=== PATIENT | female | born 1985 | race Two or more races ===

== ENCOUNTER 2017-10-04 10:56 | Inpatient (IN) | payer BC, MEDICAID ==
[2017-10-04] MEDS ORDERED: Ketorolac Tromethamine 30 MG/ML VIAL ONE (11:49)
[2017-10-04] MEDS ORDERED: PHENYLEPHRINE-NS 100 MCG/ML 10 ML SYRINGE ONE (11:49)
[2017-10-04] MEDS ORDERED: Ondansetron HCl/PF 4 MG/2 ML Vial ONE (11:49)
[2017-10-04 11:59] VITALS: BMI 26.6
[2017-10-04 12:46] LABS: Amnisure Internal Control QC ACCEPTABLE (ACCEPTABLE); Amnisure Test RUPTURE DETECTED (No Rupture)
[2017-10-04] MEDS: Lactated Ringer's 1,000 ML IV SCH ×2 (14:11→14:32)
[2017-10-04] MEDS ORDERED: Ondansetron HCl/PF 4 MG/2 ML Vial IVP PRN ×5 (14:14→23:55)
[2017-10-04] MEDS ORDERED: Promethazine HCl 25 MG/ML VIAL IM PRN ×3 (14:14→23:55)
[2017-10-04] MEDS ORDERED: Docusate 100 MG CAP PO PRN (14:14)
[2017-10-04 14:29] LABS: Hemoglobin 12.8 g/dL (12.0-16.0); Mean Corpuscular Hemoglobin 34.3 pg (27.0-31.0); Mean Platelet Volume 9.1 fL (7.4-10.4); Platelet Count 140 thou/uL (130-400); RBC Distribution Width 12.4 % (11.5-14.5); Red Blood Cell (RBC) Count 3.75 mill/uL (4.20-5.40); White Blood Cell (WBC) Count 9.6 thou/uL (4.8-10.8)
[2017-10-04] MEDS ORDERED: CEFAZOLIN/Water 2 GM/20 ML SYRINGE SLOW IVP SCH ×2 (14:30)
[2017-10-04] MEDS ORDERED: Bicitra 30 ML UDCUP PO SCH (14:30)
[2017-10-04 15:07] LABS: HBSAg Index 0.17 S/CO (0-0.99); Hep B Surf Ag Non-Reactive S/CO (NonReactive); Syphilis Antibody Nonreactive (Nonreactive); Syphilis Antibody Index 0.04 S/CO (<1.00 Non-Reactive)
[2017-10-04] MEDS ORDERED: Morphine PF 1 MG/ML SYR ONE (15:59)
[2017-10-04] MEDS ORDERED: Oxytocin 10 UNITS/ML VIAL ONE (15:59)
[2017-10-04] MEDS ORDERED: Bupivacaine 0.75% W/DEXTROSE 8.25% 2 ML AMP ONE (16:05)
[2017-10-04] MEDS ORDERED: Lidocaine 1% PF 5 ML VIAL ONE (16:05)
[2017-10-04] MEDS ORDERED: Promethazine HCl 25 MG SUPP PR PRN ×2 (16:35→23:55)
[2017-10-04] MEDS ORDERED: Naloxone HCl 0.4 mg/ml Vial IV PRN ×4 (16:35→23:55)
[2017-10-04] MEDS ORDERED: Ketorolac Tromethamine 30 MG/ML VIAL IVP PRN (16:35)
[2017-10-04] MEDS ORDERED: HYDROmorphone 2 MG/ML VIAL SLOW IVP PRN (16:35)
[2017-10-04] MEDS ORDERED: Naloxone HCl 0.4 mg/ml Vial IVP PRN ×2 (16:35)
[2017-10-04] MEDS ORDERED: diphenhydrAMINE 50 MG/ML VIAL IVP PRN ×2 (16:35→23:55)
[2017-10-04] MEDS ORDERED: Meperidine HCl/PF 25 MG/ML VIAL SLOW IVP PRN (16:35)
[2017-10-04] MEDS ORDERED: Eucerin (Mineral Oil/Petrolatum,White) 30 gm Jar TOP PRN (16:35)
[2017-10-04] MEDS ORDERED: Acetaminophen 1,000 MG in Premix Bag 1 BAG IVPB PRN ×2 (16:37→23:57)
[2017-10-04] MEDS ORDERED: Communication Order-Pharmacy FS SCH (16:45)
[2017-10-04] MEDS ORDERED: Fentanyl 100 MCG/2 ML VIAL ONE (17:30)
[2017-10-04] MEDS ORDERED: diphenhydrAMINE 25 MG CAP PO PRN (20:55)
[2017-10-04] MEDS ORDERED: HYDROcodone/Acetaminophen 5/325 mg Tablet PO PRN ×2 (20:55)
[2017-10-04] MEDS ORDERED: Adacel (T-DAP) 0.5 ML VIAL IM ONE (20:55)
[2017-10-04] MEDS ORDERED: Simethicone Chewable 80 MG TAB PO PRN (20:55)
[2017-10-04] MEDS ORDERED: NS / Oxytocin 40 units/1000ml 1,000 ML ONE (21:41)
[2017-10-04] MEDS ORDERED: Hydrocerin (Eucerin) Cream 120 gm Jar TOP PRN (23:55)
[2017-10-04] MEDS ORDERED: NO PO,IM,IV OR SC NARCOTICS FOR 12HR EXCEPT BY ANESTHESIA PO SCH (23:55)
[2017-10-05] MEDS: Ketorolac Tromethamine 30 MG/ML VIAL IVP PRN ×2 (00:14→09:27)
[2017-10-05 06:02] LABS: Hemoglobin 10.4 g/dL (12.0-16.0); Mean Corpuscular HGB CONC 35.3 g/dL (32.0-36.0); Mean Corpuscular Hemoglobin 34.8 pg (27.0-31.0); Mean Corpuscular Volume 98.4 fL (78.0-98.0); Mean Platelet Volume 8.7 fL (7.4-10.4); Platelet Count 141 thou/uL (130-400); RBC Distribution Width 12.3 % (11.5-14.5); Red Blood Cell (RBC) Count 2.98 mill/uL (4.20-5.40); White Blood Cell (WBC) Count 9.1 thou/uL (4.8-10.8)
[2017-10-05] MEDS: Docusate Calcium (SURFAK) 240 MG CAP PO SCH ×3 (06:53→22:30)
--- NOTE | 2017-10-05 07:42 | ADD-OP ---
ADDENDUM DATE OF SERVICE: 10/04/2017 I was present and scrubbed to assist the uncomplicated repeat with Dr. Treasure [place]. Ple ase see her note for full details.
[2017-10-05] MEDS: Prenatal Vitamin 1 TAB PO SCH (08:00)
[2017-10-05] MEDS ORDERED: HYDROcodone/Acetaminophen 5/325 mg Tablet PO PRN ×2 (11:55)
[2017-10-05] MEDS: Ibuprofen 800 MG TAB PO PRN (22:30)
[2017-10-06] MEDS: Ibuprofen 800 MG TAB PO PRN ×3 (05:19→21:23)
[2017-10-06] MEDS: Lanolin Ointment 7 GM TUBE TOP PRN ×2 (05:19→07:57)
[2017-10-06] MEDS: Docusate Calcium (SURFAK) 240 MG CAP PO SCH ×2 (07:57→21:24)
[2017-10-06] MEDS: Prenatal Vitamin 1 TAB PO SCH (07:57)
--- NOTE | 2017-10-06 12:07 | OP ---
DATE OF PROCEDURE: 10/04/2017 ADMITTING DIAGNOSES: 1. A 31-year-old G3, P1-0-1-1 at 39 and 5 weeks with premature rupture of membranes at midnight with clear fluid. 2. History of a low transverse section. 3. GBS positive. 4. Documented size greater than dates with concern for cephalopelvic disproportion. 5. Remote from delivery with a sterile vaginal exam of 1 cm, 60% effaced tunneling and -3 station wi th a ballottable head. POSTOPERATIVE DIAGNOSES: 1. A 31-year-old G3, P1-0-1-1 at 39 and 5 weeks with premature rupture of membranes at midnight with clear fluid. 2. History of a low transverse section. 3. GBS positive. 4. Documented size greater than dates with concern for cephalopelvic disproportion. 5. Remote from delivery with a sterile vaginal exam of 1 cm, 60% effaced tunneling and -3 station wi th a ballottable head. 6. Liveborn female with Apgars of 9 and 9 at 1 and 5 minutes respectively, weighing 8 pounds 2 ounce s. SURGEON: Treasure Colorado M.D. EVALUATION MANAGER: Dr. Lori Sprague ESTIMATED BLOOD LOSS: 750 mL. ANESTHESIA: Spinal. CLINICAL HISTORY: This patient is a 31-year-old [place] female G3, P1-0-1-1 who presented at 39 weeks and 5 days with a complaint of leakage of fluid. She noticed the first gush of fluid at midnight th e night prior. At this point, it was 14 hours since the original leakage and she was still draining. An exam was done by the Labor and Delivery nurses, which was positive for amniotic fluid. The nurs e did note that there was a slight blood tinge on the Q-tip, but given the patient's continued leakag e in the bed she was grossly ruptured. Due to the excessive movement and the enlarged abdomen greater than expected, an ultrasound at the bedside was performed to document directionality, i t was noted to be vertex, but above the pelvic brim. The patient was counseled and her notes were re viewed and noting Dr. Giordano's notes of size greater than dates and GBS positive status with 14 hours ruptured. The patient originally desired a vaginal after ; however, after discussion, the counseling and noting her cervical exam, the decision was made for a repeat section. Th e risks, benefits and possible complications as well as alternatives were discussed and the patient w as taken to the OR for spinal administration. DETAILS OF PROCEDURE: After the spinal was placed. The patient was laid in the supine position with a leftward tilt. The dop tones were obtained which were within normal limits. The patient was prep ped and draped in the usual sterile fashion. After testing for adequate anesthesia, an incision was made over the previous incision in the lower pelvis in a Pfannenstiel manner and this was carried lisa n to the fascia. The fascia was nicked in the midline and was uncovered that a permanent suture was present from her previous low transverse section 5 years ago. This was removed throughout t he procedure to avoid retention of the remnants. The incision was then extended bilaterally and the Maximo clamps were grasped for the superior edge and the rectus muscles were dissected off with a com bination of blunt and sharp dissection. In similar fashion, the inferior border was dissected off of the rectus and pyramidalis muscles and then the rectus muscles were tented and in the midl ine on the midline raphae. The bladder blade was then placed and a bladder flap was created using Me tzenbaum scissors. Once the bladder was retracted down away from the incision location and the bladd er blade was replaced anterior to this, an incision was made over the uterus and carried down to the amnion. The amniotomy was performed for clear fluid and the surgeon's hand was reached in and graspe d the floating head to the incision. The head was delivered with traction followed by the ante rior shoulder, followed by the posterior shoulder, then the remainder of the infant's body. The infa nt cried spontaneously and was very vigorous. The cord was doubly clamped and cut and cord blood was obtained. The was then handed off to the neonatology team in attendance for the delivery. T he placenta was then removed manually intact with a 3-vessel cord. The uterus was exteriorized and t he debris was cleansed from the intrauterine cavity. There was noted to be a small hematoma that was developing in the left uterine incision border. This was contained and evacuated with a combination of locking sutures and then using the scalpel to extract the extra clotted blood once the incision w as closed. A second imbricating layer was performed on the uterus with excellent hemostasis. The gu tters were then cleansed of all debris and the Seprafilm was placed over the incision. The peritoneu m was then closed in a running fashion after the uterus was placed back into the abdomen and the rect us muscles were reapproximated with an absorbable suture. The prefascial gutters were cleansed of al l debris and the fascia was then closed in a running fashion. The subcutaneous tissues were then irr igated and the bleeding was corrected with Bovie cautery and then the subcutaneous tissues were reapp roximated with interrupted 2-0 chromic sutures. The skin was then closed with 4-0 Monocryl and Steri -Strips and a pressure dressing were placed over the incision. The patient tolerated the procedure w ell. She was dedraped and cleansed and the uterus was expressed for all debris. The patient was the n sent back to the recovery area with her infant. Again, all needle, sponge, lap, and instrument cou nts were correct x2 at the end of the procedure and the infant was a liveborn female with Apgars of 9 and 9 at 1 and 5 minutes respectively, weighing 8 pounds 2 ounces. There were no other issues surro unding this delivery.
[2017-10-07] MEDS: Ibuprofen 800 MG TAB PO PRN ×2 (05:18→13:46)
[2017-10-07 07:40] VITALS: BP 94/53; TEMP 98.3
[2017-10-07] MEDS: Prenatal Vitamin 1 TAB PO SCH (09:12)
[2017-10-07] MEDS: Docusate Calcium (SURFAK) 240 MG CAP PO SCH (09:12)
[2017-10-07] MEDS: Measles/Mumps/Rubella 10 MCG/0.5 ML VIAL SC ONE ×2 (09:58→10:03)
== END 2017-10-07 14:15 | disposition home or self-care (01) | DRG 766 ==
LOC: L&D/OP 10:56 → L&D 14:47 → 3SW 19:53
PROVIDERS: ADMIT Obstetrics & Gynecology; ATTEND Obstetrics & Gynecology
PROC: 10D00Z1 Extraction of Products of Conception, Low, Open Approach (ICD-10-PCS; principal; 2017-10-04)
PROC: 3E0234Z Introduction of Serum, Toxoid and Vaccine into Muscle, Percutaneous Approach (ICD-10-PCS; 2017-10-07)
DX: O42.02 Full-term premature rupture of membranes, onset of labor within 24 hours of rupture (principal); O34.211 Maternal care for low transverse scar from previous cesarean delivery; O33.9 Maternal care for disproportion, unspecified; O26.843 Uterine size-date discrepancy, third trimester; O99.824 Streptococcus B carrier state complicating childbirth; Z3A.39 39 weeks gestation of pregnancy; Z37.0 Single live birth; Z23 Encounter for immunization
CPT/HCPCS: 36415; 51702; 76815; 84112; 85027; 86780; 86850; 86900; 86901; 87340; 99285; J1885; J2001; J2274; J2405; J2590; J3010; J3490

== ENCOUNTER 2018-10-09 13:28 | Outpatient (CLI) | payer BC, MEDICAID ==
--- NOTE | 2018-10-09 14:04 | RAD ---
EXAM: Chest PA and lateral: HISTORY: Positive TB test COMPARISON: None FINDINGS: Heart: Normal cardiac silhouette Aorta: Unremarkable Pulmonary vessels: Normal Costophrenic angles: Costophrenic angles are clear. Lungs: No consolidation or masses. Pneumothorax: No pneumothorax Osseous structures: No osseous abnormalities IMPRESSION: No acute cardiopulmonary process.
== END 2018-10-09 13:29 | disposition home or self-care (01) ==
LOC: BICRAD 13:28
PROVIDERS: ATTEND Family Medicine
DX: R76.11 Nonspecific reaction to tuberculin skin test without active tuberculosis (principal)
CPT/HCPCS: 71046